=== PATIENT | female | born 1945 | race Caucasian/White ===

== ENCOUNTER → 2017-08-31 | Outpatient (CLI) | payer OTHER ==
[~2017-08-31] MED LIST: ASPI325EC; DOXA4 PO; HYDACE5 PO; LEVSOD125; LISI20; OMEP10ER
[2017-08-31 19:53] LABS: Calcium, Urine 10.3 mg/dL (2.0-17.5); Calcium, Urine Calculation 154.5 mg/24hrs (42.0-353.0)
== END | disposition home or self-care (01) ==
LOC: OLS 11:45
PROVIDERS: Internal Medicine Endocrinology, Diabetes & Metabolism
DX: E21.3 Hyperparathyroidism, unspecified (principal)
CPT/HCPCS: 81050; 82340

== ENCOUNTER → 2018-03-07 | Outpatient (CLI) | payer OTHER ==
[2018-03-07 07:45] LABS: Source, Urine Clean Catch
[2018-03-07 10:01] LABS: Bilirubin, Urine Neg (Neg); Blood, Urine 1+ (Neg); Glucose Qualitative, Urine Neg (Neg); Ketones, Urine Neg (Neg); Leukocyte Esterase, Urine 3+ (Neg); Nitrite, Urine Neg (Neg); Protein, Urine 1+ (Neg); Specific Gravity, Urine 1.025 (1.003-1.022); Urobilinogen, Urine NORM (Normal)
[2018-03-07 10:07] LABS: Appearance, Urine Cloudy (Clear); Color, Urine Yellow (P-Yellow)
[2018-03-07 10:08] LABS: Bacteria Many /hpf; Red Blood Cells, Urine 0-2 /hpf (0-2); Squamous Epithelial Cells Few /hpf (Few); White Blood Cells, Urine 50-100 /hpf (0-5)
[2018-03-07 10:09] LABS: Amorphous Heavy (0-Heavy); Calcium Oxalate Crystals Many /hpf; Transitional Epithelial Cells Few /hpf (0-Rare); Uric Acid Crystals Few /hpf
== END | disposition home or self-care (01) ==
LOC: LAB 07:44 → LAB SHORT 07:44
PROVIDERS: Internal Medicine
DX: R30.0 Dysuria (principal)
CPT/HCPCS: 81001

== ENCOUNTER → 2019-01-19 | Outpatient (CLI) | payer OTHER ==
[2019-01-19 12:53] LABS: Source, Urine Clean Catch
[2019-01-19 14:47] LABS: Appearance, Urine Turbid (Clear); Blood, Urine 1+ (Neg); Color, Urine Amber (P-Yellow); Glucose Qualitative, Urine Neg (Neg); Ketones, Urine 1+ (Neg); Leukocyte Esterase, Urine 3+ (Neg); Nitrite, Urine Neg (Neg); Protein, Urine 2+ (Neg); Specific Gravity, Urine 1.025 (1.003-1.022); Urobilinogen, Urine 1+ (Normal)
[2019-01-19 14:52] LABS: Bilirubin, Urine 1+ (Neg)
[2019-01-19 14:53] LABS: Red Blood Cells, Urine 0-2 /hpf (0-2); Squamous Epithelial Cells Few /hpf (Few)
[2019-01-19 14:54] LABS: Amorphous Mod (0-Heavy); Bacteria Many /hpf; Calcium Oxalate Crystals Few /hpf
== END | disposition home or self-care (01) ==
LOC: LAB 12:45 → LAB SHORT 12:45 → LAB FUT 01-20 12:35
PROVIDERS: Internal Medicine
DX: R30.0 Dysuria (principal)
CPT/HCPCS: 81001; 87077; 87086; 87186

== ENCOUNTER → 2019-05-28 | Outpatient (CLI) | payer OTHER ==
[2019-05-28 11:09] LABS: Source, Urine Clean Catch
[2019-05-28 17:51] LABS: Appearance, Urine Clear (Clear); Bilirubin, Urine Neg (Neg); Blood, Urine Neg (Neg); Color, Urine Yellow (P-Yellow); Glucose Qualitative, Urine Neg (Neg); Ketones, Urine Neg (Neg); Leukocyte Esterase, Urine Neg (Neg); Nitrite, Urine Neg (Neg); Protein, Urine Neg (Neg); Specific Gravity, Urine 1.015 (1.003-1.022); Urobilinogen, Urine NORM (Normal)
== END | disposition home or self-care (01) ==
LOC: LAB 11:06 → LAB SHORT 11:06 → EDSTATUS 05-25 12:45 → LAB FUT 05-25 12:45
PROVIDERS: Internal Medicine
DX: R30.0 Dysuria (principal)
CPT/HCPCS: 81003

== ENCOUNTER → 2020-06-05 | Outpatient (CLI) | payer OTHER | END | disposition home or self-care (01) | LOC: PLD 14:46 → LAB SHORT 14:46 | DX: D48.5 Neoplasm of uncertain behavior of skin (principal) | CPT/HCPCS: 88305 ==

== ENCOUNTER → 2021-05-30 | Outpatient (CLI) | payer OTHER ==
[2021-05-30 14:37] LABS: Source, Urine Clean Catch
[2021-05-30 14:37] LABS: BASOPHILS ABSOLUTE AUTO 0.07 K/mm3 (0.00-0.23); BASOPHILS PERCENT AUTO 1 % (0-2); EOSINOPHILS ABSOLUTE AUTO 0.05 K/mm3 (0.00-0.68); EOSINOPHILS PERCENT AUTO 1 % (0-6); Hematocrit 41.8 % (33.0-51.0); Hemoglobin 13.4 g/dL (11.5-16.0); IMMATURE GRAN ABSOLUTE AUTO 0.04 K/mm3 (0.00-0.10); IMMATURE GRAN PERCENT AUTO 0 % (0-1); LYMPHOCYTES ABSOLUTE AUTO 1.28 K/mm3 (0.84-5.20); LYMPHOCYTES PERCENT AUTO 13 % (21-46); MONOCYTES ABSOLUTE AUTO 0.68 K/mm3 (0.16-1.47); MONOCYTES PERCENT AUTO 7 % (4-13); Mean Corpuscular HGB 28.5 pg (26.0-34.0); Mean Corpuscular HGB Conc 32.1 g/dL (31.5-36.5); Mean Corpuscular Volume 89 fL (80-100); Mean Platelet Volume 9.5 fL (9.1-12.4); NEUTROPHILS ABSOLUTE AUTO 8.06 K/mm3 (1.96-9.15); NEUTROPHILS PERCENT AUTO 79 % (41-73); Platelet Count 193 K/mm3 (150-400); RDW Coefficient Variation 13.6 % (11.7-14.2); RDW Standard Deviation 43.9 fL (35.1-46.3); White Blood Cell Count 10.18 K/mm3 (4.00-11.30)
[2021-05-30 14:41] LABS: Bacteria Not Seen /hpf; Red Blood Cells, Urine Rare /hpf (0-2); Squamous Epithelial Cells Few /hpf (Few)
[2021-05-30 14:45] LABS: Albumin/Globulin Ratio 1.2 (0.8-1.8); Bilirubin, Total 0.5 mg/dL (0.1-1.0); Bun/Creatinine Ratio 16.2 (12.0-20.0); Calcium, Blood 9.9 mg/dL (8.5-10.1); Creatinine, Blood 1.17 mg/dL (0.40-1.00); Globulin, Blood 3.4 g/dL (2.2-4.0); Potassium, Blood 4.4 mmol/L (3.5-5.5); Total Protein, Blood 7.4 g/dL (6.4-8.2)
== END | disposition home or self-care (01) ==
LOC: LAB SHORT 14:32
PROVIDERS: General Practice
DX: R10.9 Unspecified abdominal pain (principal)
CPT/HCPCS: 80053; 81015; 85025; 87077; 87086; 87186

== ENCOUNTER → 2022-03-27 | Outpatient (CLI) | payer OTHER ==
[2022-03-29 13:40] LABS: Stool Occult Bld Immuno 1 Negative (NEGATIVE)
== END | disposition home or self-care (01) ==
LOC: LAB 10:45 → LAB SHORT 10:45
PROVIDERS: Family Medicine
DX: Z12.11 Encounter for screening for malignant neoplasm of colon (principal)
CPT/HCPCS: G0328

== ENCOUNTER 2022-10-14 15:00 | Inpatient (IN) | payer OTHER ==
[~2022-10-14] VITALS: Ht 160 cm; Wt 98.1 kg
[~2022-10-14 15:00] MED LIST changes: -AMLODIPINE BESY10 MG PO; -BUSPIRONE HCL30 M6 PO; -DORZOLAMIDE-TIM10 ML BOTHEYES; -DRAMAMINE25 M3 PO; -EFFEXOR XR150 MG PO; -FOLI1; -FOSAMAX70 MG PO; -LATANOPROST2.5 M3 BOTHEYES; -LEUCOVORIN CALCI; -LEVSOD150 PO; -METFORMIN HCL500 M3 PO; -METHOTREXATE2.510 PO; -OMEP20ER PO; -PRED5 PO; -Prinivil10 MG PO; -XARELTO20 MG PO
[2022-10-14] MEDS ORDERED: DRAMAMINE25 M3 PO (17:29)
[2022-10-14] MEDS ORDERED: DORZOLAMIDE-TIM10 ML BOTHEYES (17:31)
[2022-10-14] MEDS ORDERED: Prinivil10 MG PO (17:32)
[2022-10-14] MEDS ORDERED: LATANOPROST2.5 M3 BOTHEYES (17:32)
[2022-10-14] MEDS ORDERED: METFORMIN HCL500 M3 PO (17:33)
[2022-10-14] MEDS ORDERED: PRED5 PO (17:33)
[2022-10-14] MEDS ORDERED: EFFEXOR XR150 MG PO (17:34)
[2022-10-14] MEDS ORDERED: FOSAMAX70 MG PO (17:34)
[2022-10-14] MEDS ORDERED: OMEP20ER PO (17:35)
[2022-10-14] MEDS ORDERED: METHOTREXATE2.510 PO (17:35)
[2022-10-14] MEDS ORDERED: BUSPIRONE HCL30 M6 PO (17:36)
[2022-10-14] MEDS ORDERED: LEVSOD150 PO (17:36)
[2022-10-14 17:50] LABS: Anti-Xa UFH, PHA Monitoring <0.10 IU/mL; International Normalized Ratio 1.17; Prothrombin Time Results 12.2 Sec (9.7-11.5)
[2022-10-14] MEDS ORDERED: FOLI1 (19:45)
[2022-10-14] MEDS ORDERED: AMLODIPINE BESY10 MG PO (19:45)
[2022-10-14] MEDS ORDERED: LEUCOVORIN CALCI (21:55)
[2022-10-15 03:43] LABS: BASOPHILS ABSOLUTE AUTO 0.06 K/mm3 (0.00-0.23); BASOPHILS PERCENT AUTO 1 % (0-2); EOSINOPHILS ABSOLUTE AUTO 0.18 K/mm3 (0.00-0.68); EOSINOPHILS PERCENT AUTO 2 % (0-6); Hematocrit 39.2 % (33.0-51.0); Hemoglobin 13.1 g/dL (11.5-16.0); IMMATURE GRAN ABSOLUTE AUTO 0.08 K/mm3 (0.00-0.10); IMMATURE GRAN PERCENT AUTO 1 % (0-1); LYMPHOCYTES ABSOLUTE AUTO 2.75 K/mm3 (0.84-5.20); LYMPHOCYTES PERCENT AUTO 29 % (21-46); MONOCYTES ABSOLUTE AUTO 0.87 K/mm3 (0.16-1.47); MONOCYTES PERCENT AUTO 9 % (4-13); Mean Corpuscular HGB 30.1 pg (26.0-34.0); Mean Corpuscular HGB Conc 33.4 g/dL (31.5-36.5); Mean Corpuscular Volume 90 fL (80-100); Mean Platelet Volume 9.7 fL (9.1-12.4); NEUTROPHILS ABSOLUTE AUTO 5.43 K/mm3 (1.96-9.15); NEUTROPHILS PERCENT AUTO 58 % (41-73); Platelet Count 160 K/mm3 (150-400); RDW Coefficient Variation 14.3 % (11.7-14.2); RDW Standard Deviation 46.2 fL (35.1-46.3); Red Blood Cell Count 4.35 M/mm3 (3.80-5.20); White Blood Cell Count 9.37 K/mm3 (4.00-11.30)
[2022-10-15 04:36] LABS: Albumin, Blood 3.4 g/dL (3.4-5.0); Albumin/Globulin Ratio 1.2 (0.8-1.8); Bilirubin, Total 0.5 mg/dL (0.1-1.0); Bun/Creatinine Ratio 16.5 (12.0-20.0); Calcium, Blood 9.2 mg/dL (8.5-10.1); Creatinine, Blood 0.79 mg/dL (0.40-1.00); Globulin, Blood 2.9 g/dL (2.2-4.0); Potassium, Blood 3.9 mmol/L (3.5-5.5); Total Protein, Blood 6.3 g/dL (6.4-8.2)
--- NOTE | 2022-10-15 05:07 | NUR ---
SHIFT SUMMARY: Patient arrived from ER yesterday evening, on 2L nasal cannula and heparin drip at 18units/kg/hr. Dyspnea with exertion, otherwise stable. Oxygen weaned off, then reapplied due to desats to 88% on room air. Hypertensive intermittently, especially with activity. Wears a CPAP when sleeping with 1L oxygen.
--- NOTE | 2022-10-15 14:46 | NUR ---
PHARMACY CONTACTED THIS RN AT 1405 ABOUT PT HEPARIN ANTI-XA LEVEL. PHARMACY STATED THAT THE PT LEVEL HAS REMAINED CHANGED TWICE EVEN AFTER A BOLUS AND RUNNING AT THE ORDERED RATE. PHARMACY WAS GOING TO ORDER ANOTHER BOLUS WITH ANOTHER RATE INCREASE. PHARMACY AGAIN CALLED THIS RN TO ASK ABOUT THE IV PUMP SETTINGS. PHARMACY STATED THAT THE PT WEIGHT WAS SET TO 44KG WHEN IT SHOULD BE SET FOR 71KG. ORDER SHOWED 44KG FOR THE DOSING WEIGHT. PHARMACY STATED THAT WEIGHT CHANGE WILL BE NMADE AND THAT THE RATE WILL LOWERED, SEE NEW ORDERS. CONSUMER LOAN MANAGER NOTIFIED.
--- NOTE | 2022-10-15 16:56 | NUR ---
SHIFT SUMMARY PT A/OX4 AND COOPERATIVE OF CARE. PT BP'S ELEVATED, STARTED HOME BP MEDS. PT WAS ON 2L NC AT SHIFT CHANGE, TITRATED OFF OF O2, SATS REMAINEED IN THE 90'S OTHER VSS THROUGHOUT SHIFT. NO REPORT OF CHEST PAIN/PRESSURE THROUGHOUT SHIFT. PT REPORTS SOB WITH EXERTION, NO SOB WHILE AT REST. PT HAD DIARRHEA THIS MORNING, DR NOTIFIED, IMODIUM ORDERED AND GIVEN.
[2022-10-16 04:20] LABS: Hematocrit 36.2 % (33.0-51.0); Hemoglobin 12.3 g/dL (11.5-16.0); Mean Platelet Volume 9.6 fL (9.1-12.4); Platelet Count 159 K/mm3 (150-400)
--- NOTE | 2022-10-16 06:18 | NUR ---
SHIFT SUMMARY PT REMAINS A&O X4. VSS. PT USED CPAP THROUGHOUT NIGHT. PT SLEPT WELL THROUGHOUT SHIFT. NO EPISODES OF DIARRHEA THIS SHIFT. PT REPOSITIONED INDEPENDENTLY AND UP TO USE BATHROOM W/SUPERVISION. CBG STABLE, NO COVERAGE NEEDED THIS SHIFT. HEPARIN INFUSING PER EMAR. PT HAD UNEVENTFUL NIGHT AND NO ACUTE CHANGES THIS SHIFT. PT ABLE TO VERBALIZE NEEDS. CALL LIGHT IN REACH AND BED IN LOWEST POSITION. WILL UPDATE ONCOMING RN
[2022-10-16] MEDS ORDERED: XARELTO20 MG PO (11:44)
== END 2022-10-16 12:36 | disposition home or self-care (01) | DRG 175 ==
LOC: ER 15:00 → PCU 18:44
PROVIDERS: Emergency Medicine; Family Medicine; ADMIT Internal Medicine
DX: I26.99 Other pulmonary embolism without acute cor pulmonale (principal); I21.A1 Myocardial infarction type 2; I82.411 Acute embolism and thrombosis of right femoral vein; I82.811 Embolism and thrombosis of superficial veins of right lower extremity; N17.9 Acute kidney failure, unspecified; M06.9 Rheumatoid arthritis, unspecified; I12.9 Hypertensive chronic kidney disease with stage 1 through stage 4 chronic kidney disease, or unspecified chronic kidney disease; E11.22 Type 2 diabetes mellitus with diabetic chronic kidney disease; E03.9 Hypothyroidism, unspecified; K21.9 Gastro-esophageal reflux disease without esophagitis; N18.2 Chronic kidney disease, stage 2 (mild); G47.30 Sleep apnea, unspecified; R53.83 Other fatigue; R79.1 Abnormal coagulation profile; E87.6 Hypokalemia; F32.A Depression, unspecified; F41.9 Anxiety disorder, unspecified; R42 Dizziness and giddiness; R79.89 Other specified abnormal findings of blood chemistry; Z98.890 Other specified postprocedural states; Z88.8 Allergy status to other drugs, medicaments and biological substances; Z88.0 Allergy status to penicillin; Z88.7 Allergy status to serum and vaccine; Z79.899 Other long term (current) drug therapy; Z79.811 Long term (current) use of aromatase inhibitors; Z79.82 Long term (current) use of aspirin; Z90.49 Acquired absence of other specified parts of digestive tract; Z79.84 Long term (current) use of oral hypoglycemic drugs; Z79.52 Long term (current) use of systemic steroids
CPT/HCPCS: 36415; 71260; 80053; 82947; 84484; 85014; 85018; 85025; 85049; 85520; 85610; 93306; 93970; 94660; 94762; 96365-59; 96366; 97110; 97116; 97161; 97530; 99285-25; A9270; C1751; J1644; J7512; Q9967

== ENCOUNTER → 2022-10-14 | Outpatient (CLI) | payer OTHER ==
[~2022-10-14] MED LIST changes: +AMLODIPINE BESY10 MG PO; +BUSPIRONE HCL30 M6 PO; +DORZOLAMIDE-TIM10 ML BOTHEYES; +DRAMAMINE25 M3 PO; +EFFEXOR XR150 MG PO; +FOLI1; +FOSAMAX70 MG PO; +LATANOPROST2.5 M3 BOTHEYES; +LEUCOVORIN CALCI; -LEVSOD125; +LEVSOD150 PO; -LISI20; +METFORMIN HCL500 M3 PO; +METHOTREXATE2.510 PO; -OMEP10ER; +OMEP20ER PO; +PRED5 PO; +Prinivil10 MG PO; +XARELTO20 MG PO
[2022-10-14 14:14] LABS: BASOPHILS ABSOLUTE AUTO 0.09 K/mm3 (0.00-0.23); BASOPHILS PERCENT AUTO 1 % (0-2); EOSINOPHILS ABSOLUTE AUTO 0.15 K/mm3 (0.00-0.68); EOSINOPHILS PERCENT AUTO 1 % (0-6); Hematocrit 43.8 % (33.0-51.0); Hemoglobin 14.7 g/dL (11.5-16.0); IMMATURE GRAN ABSOLUTE AUTO 0.12 K/mm3 (0.00-0.10); IMMATURE GRAN PERCENT AUTO 1 % (0-1); LYMPHOCYTES ABSOLUTE AUTO 3.31 K/mm3 (0.84-5.20); LYMPHOCYTES PERCENT AUTO 30 % (21-46); MONOCYTES ABSOLUTE AUTO 1.03 K/mm3 (0.16-1.47); MONOCYTES PERCENT AUTO 9 % (4-13); Mean Corpuscular HGB 30.4 pg (26.0-34.0); Mean Corpuscular HGB Conc 33.6 g/dL (31.5-36.5); Mean Corpuscular Volume 91 fL (80-100); Mean Platelet Volume 9.5 fL (9.1-12.4); NEUTROPHILS ABSOLUTE AUTO 6.32 K/mm3 (1.96-9.15); NEUTROPHILS PERCENT AUTO 57 % (41-73); Platelet Count 172 K/mm3 (150-400); RDW Coefficient Variation 14.3 % (11.7-14.2); RDW Standard Deviation 45.9 fL (35.1-46.3); Red Blood Cell Count 4.83 M/mm3 (3.80-5.20); White Blood Cell Count 11.02 K/mm3 (4.00-11.30)
[2022-10-14 14:33] LABS: Albumin/Globulin Ratio 1.1 (0.8-1.8); Bilirubin, Total 0.7 mg/dL (0.1-1.0); Bun/Creatinine Ratio 11.7 (12.0-20.0); Creatinine, Blood 1.2 mg/dL (0.40-1.00); Globulin, Blood 3.6 g/dL (2.2-4.0); Potassium, Blood 3.2 mmol/L (3.5-5.5); Thyroid Stimulating Hormone 7.973 uIU/mL (0.360-4.800); Total Protein, Blood 7.6 g/dL (6.4-8.2)
== END | disposition home or self-care (01) ==
LOC: LAB SHORT 14:08
PROVIDERS: Chiropractor
DX: R22.43 Localized swelling, mass and lump, lower limb, bilateral (principal); R06.09 Other forms of dyspnea; R53.83 Other fatigue
CPT/HCPCS: 80053; 83880; 84443; 84484; 85025; 85379

== ENCOUNTER 2024-06-08 09:54 | Emergency (ER) | payer OTHER ==
[~2024-06-08] VITALS: Ht 160 cm; Wt 86.2 kg
[~2024-06-08 09:54] MED LIST changes: +AMLODIPINE BESY10 MG PO; +BUSPIRONE HCL30 M6 PO; +DORZOLAMIDE-TIM10 ML BOTHEYES; +DRAMAMINE25 M3 PO; +EFFEXOR XR150 MG PO; +FOLI1; +FOSAMAX70 MG PO; +LATANOPROST2.5 M3 BOTHEYES; +LEUCOVORIN CALCI; +LEVSOD150 PO; +METFORMIN HCL500 M3 PO; +METHOTREXATE2.510 PO; +OMEP20ER PO; +PRED5 PO; +Prinivil10 MG PO; +XARELTO20 MG PO
[2024-06-08 10:18] LABS: BASOPHILS ABSOLUTE AUTO 0.07 K/mm3 (0.00-0.23); BASOPHILS PERCENT AUTO 1 % (0-2); EOSINOPHILS PERCENT AUTO 2 % (0-6); Hematocrit 46.6 % (33.0-51.0); Hemoglobin 15.7 g/dL (11.5-16.0); IMMATURE GRAN ABSOLUTE AUTO 0.03 K/mm3 (0.00-0.10); IMMATURE GRAN PERCENT AUTO 0 % (0-1); LYMPHOCYTES ABSOLUTE AUTO 2.64 K/mm3 (0.84-5.20); LYMPHOCYTES PERCENT AUTO 29 % (21-46); MONOCYTES ABSOLUTE AUTO 0.53 K/mm3 (0.16-1.47); MONOCYTES PERCENT AUTO 6 % (4-13); Mean Corpuscular HGB 29.8 pg (26.0-34.0); Mean Corpuscular HGB Conc 33.7 g/dL (31.5-36.5); Mean Corpuscular Volume 88 fL (80-100); Mean Platelet Volume 9.3 fL (9.1-12.4); NEUTROPHILS ABSOLUTE AUTO 5.75 K/mm3 (1.96-9.15); NEUTROPHILS PERCENT AUTO 62 % (41-73); Platelet Count 192 K/mm3 (150-400); RDW Coefficient Variation 12.6 % (11.7-14.2); RDW Standard Deviation 41.1 fL (35.1-46.3); Red Blood Cell Count 5.27 M/mm3 (3.80-5.20); White Blood Cell Count 9.22 K/mm3 (4.00-11.30)
[2024-06-08 10:31] LABS: Albumin, Blood 3.9 g/dL (3.4-5.0); Albumin/Globulin Ratio 1.1 (0.8-1.8); Bilirubin, Total 0.7 mg/dL (0.1-1.0); Bun/Creatinine Ratio 16.5 (12.0-20.0); Calcium, Blood 9.5 mg/dL (8.5-10.1); Creatinine, Blood 1.03 mg/dL (0.40-1.00); Globulin, Blood 3.5 g/dL (2.2-4.0); Magnesium, Blood 1.9 mg/dL (1.6-2.4); Potassium, Blood 4.4 mmol/L (3.5-5.5); Total Protein, Blood 7.4 g/dL (6.4-8.2)
[2024-06-08 14:30] VITALS: BP 169/75
== END 2024-06-08 14:53 | disposition home or self-care (01) ==
LOC: ER 09:54
PROVIDERS: Physician Assistant
DX: M54.12 Radiculopathy, cervical region (principal); R20.0 Anesthesia of skin; E11.22 Type 2 diabetes mellitus with diabetic chronic kidney disease; I12.9 Hypertensive chronic kidney disease with stage 1 through stage 4 chronic kidney disease, or unspecified chronic kidney disease; N18.9 Chronic kidney disease, unspecified; E03.9 Hypothyroidism, unspecified; K21.9 Gastro-esophageal reflux disease without esophagitis; G47.30 Sleep apnea, unspecified; Z79.84 Long term (current) use of oral hypoglycemic drugs; Z79.52 Long term (current) use of systemic steroids; Z79.899 Other long term (current) drug therapy; Z88.0 Allergy status to penicillin; Z88.7 Allergy status to serum and vaccine; Z88.6 Allergy status to analgesic agent; Z88.8 Allergy status to other drugs, medicaments and biological substances
CPT/HCPCS: 80053; 83735; 85025; 99283